=== PATIENT | male | born 1980 | race Caucasian/White ===

== ENCOUNTER 2019-10-12 22:16 | Emergency (ER) | payer BC, OTHER ==
[2019-10-13 00:38] LABS: Absolute Lymphocytes (CBC) 2.3 K/uL (0.7-4.9); Basophils % 0.5 % (0-1.3); Hematocrit 46.6 % (39.6-49.0); Lymphocytes % 18.1 % (15.3-44.8); MPV 10.7 fL (7.6-11.3); RBC Red Blood Cell Count 5.39 M/uL (4.33-5.43)
[2019-10-13 00:50] LABS: Albumin 3.7 g/dL (3.4-5.0); Bilirubin Total 0.3 mg/dL (0.2-1.0); Potassium 3.9 mmol/L (3.5-5.1); Protein, Total 7.3 g/dL (6.4-8.2)
--- NOTE | 2019-10-13 02:47 | ER ---
Nurse's Notes [facility] Name: Donaldo Londono Age: 39 yrs Sex: Male : 1980 Arrival Date: 10/12/2019 Time: 22:19 Bed 18 Private MD: Diagnosis: Fever, unspecified Presentation: 10/11 22:46 Chief complaint: Patient states: "I was at work today and at about noon I started jd3 feeling weak all over. I was running a fever of 101.3. I took Tylenol, but I have been feeling real lethargic and short of breath with chest pain and a headache.". Coronavirus screen: Surgical mask placed on patient. Patient moved to private room, placed in contact and droplet isolation with eye protection until further assessment. Patient denies a cough. Patient reports shortness of breath or difficulty breathing. Patient reports a measured and/or subjective temperature greater than 100.4F. Patient denies travel on a cruise ship or to a country the [facility] currently lists as an affected area. Patient denies contact with known and/or suspected case of COVID-19. Ebola Screen: Patient negative for fever greater than or equal to 101.5 degrees Fahrenheit, and additional compatible Ebola Virus Disease symptoms. Initial Sepsis Screen: Does the patient meet any 2 criteria? No. Patient's initial sepsis screen is negative. Does the patient have a suspected source of infection? No. Patient's initial sepsis screen is negative. Risk Assessment: Do you want to hurt yourself or someone else? Patient reports no desire to harm self or others. Onset of symptoms was October 12, 2019. 22:46 Method Of Arrival: Ambulatory jd3 22:46 Acuity: RAMANA 3 jd3 Historical: - Allergies: 22:51 No Known Allergies; jd3 - Home Meds: 22:51 BP med [Active]; DM med [Active]; thryoid med [Active]; high cholesteral med [Active]; jd3 - PMHx: 22:51 High Cholesterol; Hypertension; jd3 - PSHx: 22:51 Cholecystectomy; Knee surgery; right wrist; jd3 - Immunization history:: Adult Immunizations up to date. - Social history:: Smoking status: Patient reports the use of cigarette tobacco products, smokes one-half pack cigarettes per day. Screenin/19 00:18 Abuse screen: Denies threats or abuse. Denies injuries from another. Nutritional mg2 screening: No deficits noted. Tuberculosis screening: No symptoms or risk factors identified. Fall Risk IV access (20 points). Assessment: 00:17 General: Appears in no apparent distress. comfortable, Behavior is calm, cooperative. mg2 Pain: Complains of pain in chest Pain does not radiate. Pain currently is 2 out of 10 on a pain scale. Quality of pain is described as tightness. Neuro: Level of Consciousness is awake, alert, obeys commands, Oriented to person, place, time, situation. Cardiovascular: Capillary refill < 3 seconds Patient's skin is warm and dry. Respiratory: Airway is patent Respiratory effort is even, unlabored, Respiratory pattern is regular, symmetrical, Breath sounds are clear bilaterally. in mediastinum, right upper lobe, left upper lobe, right middle lobe, left lower lobe, right lower lobe, left posterior upper lobe, right posterior upper lobe, left posterior lower lobe, right posterior middle lobe and right posterior lower lobe. GI: No signs and/or symptoms were reported involving the gastrointestinal system. : No signs and/or symptoms were reported regarding the genitourinary system. EENT: No signs and/or symptoms were reported regarding the EENT system. Derm: Skin is intact, is healthy with good turgor, Skin is pink, warm \\T\\ dry. normal. Musculoskeletal: Circulation, motion, and sensation intact. Capillary refill < 3 seconds, Reports weakness in right arm, left arm, right leg and left leg. Vital Signs: 10/11 22:51 BP 112 / 69; Pulse 76; Resp 20 S; Temp 99.1(O); Pulse Ox 98% on R/A; Weight 118.84 kg jd3 (R); Height 6 ft. 0 in. (182.88 cm) (R); Pain 07/03; 10/12 01:30 BP 122 / 80; Pulse 75; Resp 18; Pulse Ox 100% on R/A; mg2 03:02 BP 124 / 78; Pulse 80; Resp 18; Temp 98.1; Pulse Ox 100% on R/A; mg2 10/11 22:51 Body Mass Index 35.53 (118.84 kg, 182.88 cm) jd3 ED Course: 10/11 22:19 Patient arrived in ED. ag3 22:48 Triage completed. jd3 22:52 Arm band placed on. jd3 23:25 Seng Deleon MD is Attending Physician. tw4 23:36 Lamont Brink, RN is Primary Nurse. mg2 23:58 CXR XRAY In Process Unspecified. EDMS 10/12 00:18 Patient has correct armband on for positive identification. mg2 00:18 No provider procedures requiring assistance completed. Inserted saline lock: 20 gauge mg2 in right antecubital area, using aseptic technique. Blood collected. 01:30 Door closed. mg2 03:02 IV discontinued, intact, bleeding controlled, No redness/swelling at site. Pressure mg2 dressing applied. Administered Medications: No medications were administered Outcome: 02:46 Discharge ordered by . tw4 03:02 Discharged to home ambulatory. mg2 03:02 Condition: stable 03:02 Discharge instructions given to patient, Instructed on discharge instructions, follow up and referral plans. Demonstrated understanding of instructions, follow-up care. 03:11 Patient left the ED. mg2 Addendum: 10/15/2019 06:46 Addendum: Other pt updated on COVID 19 results by . shay hart Signatures: Dispatcher [employer] EDSC Gopal Silver RN RN Erik Mantilla RN RN jd3 Seng Deleon MD MD tw4 Lamont Brink, STACY RN mg2 Ashley Rogers ag3 Corrections: (The following items were deleted from the chart) 10/11 22:49 22:46 Coronavirus screen: Proceed with normal triage. jd3 jd3
--- NOTE | 2019-10-13 02:47 | EDPHYS ---
Physician Documentation [facility] Name: Donaldo Londono Age: 39 yrs Sex: Male : 1980 Arrival Date: 10/12/2019 Time: 22:19 Bed 18 Private MD: ED Physician Seng Deleon HPI: 10/12 02:43 This 39 yrs old Male presents to ER via Ambulatory with complaints of Fever, tw4 CHILLS. 02:43 The patient reports fever, not measured (subjective). Onset: The symptoms/episode tw4 began/occurred today. Modifying factors: there are no obvious modifying factors, Denies contact with similarly ill indivduals. Denies recent travel. Associated signs and symptoms: Pertinent positives: chills. The patient has not experienced similar symptoms in the past. Historical: - Allergies: 10/11 22:51 No Known Allergies; jd3 - Home Meds: 22:51 BP med [Active]; DM med [Active]; thryoid med [Active]; high cholesteral med [Active]; jd3 - PMHx: 22:51 High Cholesterol; Hypertension; jd3 - PSHx: 22:51 Cholecystectomy; Knee surgery; right wrist; jd3 - Immunization history:: Adult Immunizations up to date. - Social history:: Smoking status: Patient reports the use of cigarette tobacco products, smokes one-half pack cigarettes per day. ROS: 10/12 02:43 Eyes: Negative for injury, pain, redness, and discharge, Cardiovascular: Negative for tw4 chest pain, palpitations, and edema, Respiratory: Negative for shortness of breath, cough, wheezing, and pleuritic chest pain, Abdomen/GI: Negative for abdominal pain, nausea, vomiting, diarrhea, and constipation, Back: Negative for injury and pain, MS/Extremity: Negative for injury and deformity, Skin: Negative for injury, rash, and discoloration, Neuro: Negative for headache, weakness, numbness, tingling, and seizure. Constitutional: Positive for fever, Negative for body aches, chills, fatigue, malaise, poor PO intake. Exam: 02:43 Constitutional: This is a well developed, well nourished patient who is awake, alert, tw4 and in no acute distress. Head/Face: Normocephalic, atraumatic. Chest/axilla: Normal chest wall appearance and motion. Nontender with no deformity. No lesions are appreciated. Cardiovascular: Regular rate and rhythm with a normal S1 and S2. No gallops, murmurs, or rubs. Normal PMI, no JVD. No pulse deficits. Respiratory: Lungs have equal breath sounds bilaterally, clear to auscultation and percussion. No rales, rhonchi or wheezes noted. No increased work of breathing, no retractions or nasal flaring. Abdomen/GI: Soft, non-tender, with normal bowel sounds. No distension or tympany. No guarding or rebound. No evidence of tenderness throughout. Back: No spinal tenderness. No costovertebral tenderness. Full range of motion. MS/ Extremity: Pulses equal, no cyanosis. Neurovascular intact. Full, normal range of motion. Neuro: Awake and alert, GCS 15, oriented to person, place, time, and situation. Cranial nerves II-XII grossly intact. Motor strength 5/5 in all extremities. Sensory grossly intact. Cerebellar exam normal. Normal gait. Vital Signs: 10/11 22:51 BP 112 / 69; Pulse 76; Resp 20 S; Temp 99.1(O); Pulse Ox 98% on R/A; Weight 118.84 kg jd3 (R); Height 6 ft. 0 in. (182.88 cm) (R); Pain 3/10; 10/12 01:30 BP 122 / 80; Pulse 75; Resp 18; Pulse Ox 100% on R/A; mg2 03:02 BP 124 / 78; Pulse 80; Resp 18; Temp 98.1; Pulse Ox 100% on R/A; mg2 10/11 22:51 Body Mass Index 35.53 (118.84 kg, 182.88 cm) jd3 MDM: 10/11 23:25 Patient medically screened. tw4 10/12 02:43 Differential diagnosis: viral Infection, bacterial infection, URI. Data reviewed: vital tw4 signs, nurses notes. Data reviewed: lab test result(s), CBC, electrolytes, Flu: negative. Data interpreted: Pulse oximetry: Interpretation: normal. Test interpretation: by ED physician or midlevel provider: plain radiologic studies. Counseling: I had a detailed discussion with the patient and/or guardian regarding: the historical points, exam findings, and any diagnostic results supporting the discharge/admit diagnosis. Special discussion: I discussed with the patient/guardian in detail that at this point there is no indication for admission to the hospital. It is understood, however, that if the symptoms persist or worsen the patient needs to return immediately for re-evaluation. 10/11 23:28 [facility] 10/11 23:28 Order name: Flu [facility] 10/11 23:28 Order name: Strep [facility] 10/11 23:29 Order name: CBC with Diff; Complete Time: 01:41 [facility] 10/12 01:41 Interpretation: Normal except: WBC 12.9; NEUT A 9.4. [facility] 10/11 23:29 Order name: CMP; Complete Time: 01:41 [facility] 10/12 01:41 Interpretation: Within normal limits. [facility] 10/12 02:51 Order name: Throat Culture [facility] 10/11 23:28 Order name: CXR XRAY [facility] 10/11 23:28 Order name: Document PUI#; Complete Time: 01:53 [facility] 10/11 23:28 Order name: Droplet/Contact Precautions; Complete Time: 00:19 [facility] 10/11 23:28 Order name: Labs collected and sent; Complete Time: 00:19 [facility] 10/11 23:28 Order name: O2 Per Protocol; Complete Time: 00:18 Administered Medications: No medications were administered Disposition: 10/13/19 02:46 Discharged to Home. Impression: Fever, unspecified. - Condition is Stable. - Discharge Instructions: Fever, Adult. - Medication Reconciliation Form, Thank You Letter, Antibiotic Education, Prescription Opioid Use, Work release form form. - Follow up: Private Physician; When: Upon discharge from the Emergency Department; Reason: Recheck today's complaints, Continuance of care, Re-evaluation by your physician. - Problem is new. - Symptoms have improved. Signatures: Dispatcher [employer] EDMS Erik Mantilla RN RN jd3 Seng Deleon MD MD tw4 Lamont Brink RN RN mg2 Corrections: (The following items were deleted from the chart) 03:11 02:46 10/13/2019 02:46 Discharged to Home. Impression: Fever, unspecified. Condition is mg2 Stable. Forms are Medication Reconciliation Form, Thank You Letter, Antibiotic Education, Prescription Opioid Use. Follow up: Private Physician; When: Upon discharge from the Emergency Department; Reason: Recheck today's complaints, Continuance of care, Re-evaluation by your physician. Problem is new. Symptoms have improved. tw4
[2019-10-13 03:24] VITALS: O2SAT 100
[2019-10-13 03:26] VITALS: BP 124/78; TEMP 98.1
--- NOTE | 2019-10-13 07:53 | RAD REPORT ---
EXAM DESCRIPTION: RAD - Chest Single View - 10/12/2019 11:57 pm CLINICAL HISTORY: CHEST PAIN COMPARISON: Portable March 2014 TECHNIQUE: AP portable chest image was obtained 10/12/2019 11:57 pm . FINDINGS: Lungs are clear. Heart and vasculature are normal. No measurable pleural effusion and no p neumothorax. No acute bony abnormality seen. No acute aortic findings suspected. IMPRESSION: No acute cardiopulmonary process. No significant interval change.
== END 2019-10-13 03:11 | disposition home or self-care (01) ==
LOC: ER 22:16
DX: R50.9 Fever, unspecified (principal); F17.210 Nicotine dependence, cigarettes, uncomplicated; I10 Essential (primary) hypertension; E78.00 Pure hypercholesterolemia, unspecified; Z20.828 Contact with and (suspected) exposure to other viral communicable diseases
CPT/HCPCS: 87070; 85025; 36415; 87081; 80053; 87804 ×2; 71045; 99283; U0001

== ENCOUNTER 2021-09-28 22:42 | Emergency (ER) | payer BC ==
--- OUTSIDE RECORDS SUMMARY | 2021-09-28 22:45 | XMS REPORT | Continuity of Care Document ---
:1980 Author Organization [facility] t Address [address] [place] [address] [address] [place] [address] Care Team Providers Name Role Phone Lorie CARO Attending Clinician Unavailable Doctor Unassigned, Name Attending Clinician Unavailable Hong VARGAS Attending Clinician JULIO CESAR Attending Clinician Unavailable NILS Attending Clinician Unavailable PRESTON Attending Clinician Unavailable Payers Payer Name Policy Type Policy Number Effective Date Expiration Date [facility] [id number] 2017 CHOICE 00:00:00 [facility] [id number] 2018 00:00:00 Problems Condition Condition Condition Status Onset Resolution Last Treating Co mments Source Name Details Category Date Date Treatment Clinician Date Pancreatit Pancreatit Disease Active U nivers is is 2-23 ity of 00:00: [place] [address] Medical Branch Obesity Obesity Disease Active 2018 Univers (BMI (BMI 2-23 ity of 30-39.9) 30-39.9) 00:00: [place] [address] Medical Branch Left wrist Left wrist Problem Active U T pain pain HL7.CCDAR2 Physic i ans Closed Closed Problem Active UT displaced displaced HL7.CCDAR2 Physici fracture fracture ans of middle of middle third of third of scaphoid 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, nonunion, subsequent subsequent encounter encounter History of History of Problem Resolve UT back pain back pain HL7.CCDAR2 d Physici ans History of History of Problem Resolve UT pancreatit pancreatit HL7.CCDAR2 d Physici is is ans Screening Screening Problem Active UT for for HL7.CCDAR2 Physic i endocrine, endocrine, an s nutritiona nutritiona l, l, metabolic metabolic and and immunity immunity disorder disorder Osteoporos Osteoporos Problem Active U T is is HL7.CCDAR2 Physic i ans GERD GERD Disease Active Univers (gastroeso (gastroeso it y of phageal phageal [place] reflux reflux Medical disease) disease) Branch Diarrhea Diarrhea Disease Active Unive rs ity [facility] [place] [facility] Allergies, Adverse Reactions, Alerts Allergy Allergy Status Severity Reaction(s) Onset Inactive Treating Comm ents Source Name Type Date Date Clinician NO KNOWN Drug Active Univers ALLERGIE Class ity of [facility] Family History Family Member Diagnosis Comments Start Date Stop Date Source Mother Family history of Heart [facility] trouble Mother Family history of [facility] hypertension Mother Family history of malignant [facility] neoplasm Mother Family history of [facility] cerebrovascular accident (CVA) Father Family history of Heart [facility] trouble Father Family history of [facility] hypertension Father Family history of malignant [facility] neoplasm Father Family history of [facility] cerebrovascular accident (CVA) Social History Social Habit Start Date Stop Date Quantity Comments Source History of tobacco Cigarette Smoker University of use [facility] Exposure to Not sure [facility] SARS-CoV-2 (event) [facility] Cigarettes smoked 2018-05-31 2018-05-31 [facility] ity of current (pack per 00:00:00 00:00:00 ) - Reported Branch Cigarette 2018-05-31 2018-05-31 University of pack-years 00:00:00 00:00:00 [facility] Tobacco use and 2018-05-31 2018-05-31 Never used Universit y of exposure 00:00:00 00:00:00 [facility] Alcohol intake 2018-05-31 2018-05-31 Current University of 00:00:00 00:00:00 non-drinker of [facility] alcohol Branch (finding) Tobacco Comment 2018-02-17 2018-02-17 e-cigarette Universi ty of 00:00:00 00:00:00 daily; [facility] cigarettes: 1/2 Branch pack, 1997 Sex Ass[birth year] Universit y of 00:00:00 00:00:00 [facility] Smoking Status Start Date Stop Date Source Heavy tobacco smoker 2018-05-31 00:00:00 [facility] ity of [facility] Medications Ordered Filled Start Stop Current Ordering Indication Dosage Frequency Signature Comments Components Source Medication Medication Date Date Medication? Clinician (SIG) Name Name morpHINE 0 2020- No 6mg 6 mg, Slow Un christopher injection 6 6-21 06- IV Push, ity of mg 16:15: 15:23 ONCE, 1 [place] 00 :00 dose, [facility] 10/14/20 at Branch 1115, STAT dexamethaso 2020- No 10mg 10 mg, IV Univers ne 10-14 Push, ity of (DECADRON 16:15: 15:24 [place]CE, 1 [place] PHOS[place] 00 :00 dose, [facility] Medi mitra injection 10/14/20 at Bran ch 10 mg 1115, STAT diazePAM 2020- No 2mg 2 mg, Slow Un christopher (VALIUM) 10-14 IV Push, ity of injection 2 14:45: 13:40 [place]CE[place] 1 [place] mg 00 :00 dose, [facility] 10/14/20 at Branch 0945, STAT FENTanyl PF 2020- No 100ug 100 mcg, Univers (SUBLIMAZE 10-14 Slow IV ity o f (PF)) 13:45: 12:45 Push, [place] injection 00 :00 ONCE, 1 Medical 100 mcg dose, [facility] 10/14/20 at 0845, Routine ketorolac 2020- No 30mg 30 mg, Unive rs (TORADOL) 10-14 Slow IV ity of injection 12:45: 12:43 Push, [place] 30 mg 00 :00 ONCE, 1 Medical dose, [facility] 10/14/20 at 0745, Routine
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 diazePAM 2020-0 Yes [id number] 5mg Take 1 Un christopher (VALIUM) 5 6-21 tablet by ity of mg tablet 00:00: mouth 3 00 (three) Medical times Branch daily. diazePAM 2020-0 Yes [id number] 5mg Take 1 Un christopher (VALIUM) 5 6-21 tablet by ity of mg tablet 00:00: mouth 3 [place] 00 (three) Medical times Branch daily. predniSONE 2020-0 2020- No [id number] 40mg Take 2 Univers 20 mg 6-21 06-27 tablets by ity of tablet 00:00: 04:59 mouth [place] 00 :00 every Medical morning Branch for 5 days. sucralfate 2019-0 Yes [id number] 1g Take 1 Un christopher 1 gram 2-05 tablet by ity of tablet 00:00: mouth [place] 00 before Medical meals and Branch at bedtime. esomeprazol 2019-0 Yes [id number] 40mg Take 1 U nivers e (NEXIUM) 2-05 capsule by ity of 40 mg 00:00: mouth [place] capsule 00 daily with Medica l breakfast. Branch ondansetron 2019-0 Yes [id number] 8mg Take 1 U nivers (ZOFRAN) 8 2-05 tablet by ity of mg tablet 00:00: mouth [place] 00 every 8 Medical (eight) Branch hours as needed for Nausea and Vomiting (N/V). sucralfate 2019-0 Yes [id number] 1g Take 1 Un christopher 1 gram 2-05 tablet by ity of tablet 00:00: mouth [place] 00 before Medical meals and Branch at bedtime. esomeprazol 2019-0 Yes [id number] 40mg Take 1 U nivers e (NEXIUM) 2-05 capsule by ity of 40 mg 00:00: mouth [place] capsule 00 daily with Medica l breakfast. Branch ondansetron 2019-0 Yes [id number] 8mg Take 1 U nivers (ZOFRAN) 8 2-05 tablet by ity of mg tablet 00:00: mouth [place] 00 every 8 Medical (eight) Branch hours as needed for Nausea and Vomiting (N/V). sucralfate 2019-0 Yes [id number] 1g Take 1 Un christopher 1 gram 2-05 tablet by ity of tablet 00:00: mouth [place] 00 before Medical meals and Branch at bedtime. esomeprazol 2019-0 Yes [id number] 40mg Take 1 U nivers e (NEXIUM) 2-05 capsule by ity of 40 mg 00:00: mouth [place] capsule 00 daily with Medica l breakfast. Branch ondansetron 2019-0 Yes [id number] 8mg Take 1 U nivers (ZOFRAN) 8 2-05 tablet by ity of mg tablet 00:00: mouth [place] 00 every 8 Medical (eight) Branch hours as needed for Nausea and Vomiting (N/V). sucralfate 2019-0 Yes [id number] 1g Take 1 Un christopher 1 gram 2-05 tablet by ity of tablet 00:00: mouth [place] 00 before Medical meals and Branch at bedtime. esomeprazol 2018- Yes [id number] 40mg Take 1 U nivers e (NEXIUM) 2-05 capsule by ity of 40 mg 00:00: mouth [place] capsule 00 daily with Medica l breakfast. Branch ondansetron Yes [id number] 8mg Take 1 U nivers (ZOFRAN) 8 2-05 tablet by ity of mg tablet 00:00: mouth [place] 00 every 8 Medical (eight) Branch hours as needed for Nausea and Vomiting (N/V). methocarbam 2017-04 Yes [id number] 500mg Take 1 Univers ol 0-25 tablet by ity of (ROBAXIN) 00:00: mouth 2 [place] 500 mg 00 (two) Medical tablet times Branch daily as needed (back pain/spasm ). methocarbam 2017-04 Yes [id number] 500mg Take 1 Univers ol 0-25 tablet by ity of (ROBAXIN) 00:00: mouth 2 [place] 500 mg 00 (two) Medical tablet times Branch daily as needed (back pain/spasm ). methocarbam 2017-04 Yes [id number] 500mg Take 1 Univers ol 0-25 tablet by ity of (ROBAXIN) 00:00: mouth 2 [place] 500 mg 00 (two) Medical tablet times Branch daily as needed (back pain/spasm ). methocarbam 2017-04 Yes [id number] 500mg Take 1 Univers ol 0-25 tablet by ity of (ROBAXIN) 00:00: mouth 2 [place] 500 mg 00 (two) Medical tablet times Branch daily as needed (back pain/spasm ). Ondansetron Ondansetron Yes MYRON 1 Q12H TAKE 1 UT HCl - 8 MG HCl - 8 MG 4-20 MANSOUR TABLET Physici Oral Tablet Oral Tablet 00:00: M.D. Every ans 00 twelve hours Colace 100 Colace 100 2017- Yes MYRON Q0.3333D TAKE 1 UT MG Oral MG Oral 4-20 MANSOUR CAPSULE 3 P hysici Capsule Capsule 00:00: M.D. TIMES ans 00 DAILY. Vital Signs Vital Name Observation Time Observation Value Comments Source Systolic blood 2020-10-14 16:00:00 123 mm[Hg] Univer [facility] Diastolic blood 2020-10-14 16:00:00 73 mm[Hg] Unive [facility] Heart rate 2020-10-14 16:00:00 50 /min [facility] Respiratory rate 2020-10-14 16:00:00 20 /min [facility] Oxygen saturation in 2020-10-14 16:00:00 97 /min [facility] Arterial blood by [facility] Pulse oximetry [place] Body temperature 2020-10-14 12:35:00 36.78 Christina [facility] Body weight 2020-10-14 12:35:00 102.513 kg [facility] BMI 2020-10-14 12:35:00 30.65 kg/m2 [facility] Procedures Procedure Date / Time Performing Clinician Source Performed PHYSICIAN ORDERS 2020-11-21 05:01:00 Doctor Unassigned, No Unive [facility] AUTHORIZATION FOR 2020-10-17 05:01:00 Doctor Unassigned, No Univ [facility] RELEASE [facility] XR LUMBAR SPINE 2 VW 2020-10-14 14:03:11 Shama Alfaro [facility] NOTICE OF PRIVACY 2020-10-14 12:25:01 Doctor Unassigned, No Univ [facility] CONSENT/REFUSAL FOR 2020-10-14 12:24:51 [facility], [facility] [Q] C TELOPEPTIDE (CTX) 2018-01-28 00:00:00 UT P hysicians [Q] PROCOLLAGEN TYPE I 2018-01-28 00:00:00 [facility] Ph ysicians INTACT N TERMINAL PROPEPTIDE [Q] VITAMIN D, 2018-01-28 00:00:00 UT Physician s 25-HYDROXY, LC/MS/MS [QH] CALCIUM 2018-01-28 00:00:00 UT Physician s [QLH] ALKALINE 2018-01-28 00:00:00 UT Physician s PHOSPHATASE, BONE SPECIFIC [QLH] CMP W/EGFR 2018-01-28 00:00:00 UT Physicia ns [QLH] MAGNESIUM 2018-01-28 00:00:00 UT Physician s [QLH] PHOSPHATE ( 2018-01-28 00:00:00 UT Physi cians PHOSPHORUS) [QLH] PTH, INTACT 2018-01-28 00:00:00 UT Physici ans (WITHOUT CALCIUM) [QLH] TSH, 3RD 2018-01-28 00:00:00 UT Physician s GENERATION W/REFLEX TO FT4 [O] Dexa Scan (Dual 2018-01-28 00:00:00 UT Physi cians Energy X-Ray) [id number] [U] XRAY WRIST MIN 3 VWS 2018-01-17 00:00:00 [facility] LEFT [id number] [U] XRAY WRIST MIN 3 VWS 2017-12-03 00:00:00 [facility] LEFT [id number] CT Wrist without 2017-11-16 00:00:00 UT Physicia ns contrast [id number] [U] XRAY WRIST MIN 3 VWS 2017-10-29 00:00:00 [facility] LEFT [id number] CT Wrist without 2017-10-08 00:00:00 UT Physicia ns contrast [id number] [U] XRAY WRIST MIN 3 VWS 2017-10-04 00:00:00 [facility] LEFT [id number] [U] XRAY WRIST MIN 3 VWS 2017-09-27 00:00:00 [facility] LEFT [id number] [U] XRAY WRIST MIN 3 VWS 2017-09-01 00:00:00 [facility] LEFT [id number] [U] XRAY WRIST MIN 3 VWS 2017-08-30 00:00:00 [facility] LEFT [id number] [U] XRAY WRIST MIN 3 VWS 2017-07-28 00:00:00 [facility] LEFT [id number] MR Wrist w/wo contrast 2017-07-28 00:00:[address] [id number] Wrist without 2017-07-28 00:00:00 UT Physicia ns contrast [id number] History of Knee surgery [facility] Physi [facility]ians History of Colonoscopy [facility] Physic ians History of Gallbladder [facility] Physic ians surgery Encounters Start End Encounter Admission Attending Care Care Encounter Source Date/Time Date/Time Type Type Clinicians Facility Department ID 2021-02-24 Emergency [facility] [id number] Univers [facility]06 2020-12-06 Outpatient R [facility] [id number] Univers 13:40:00 13:40:00 [id number] [facility] 2020-12-06 2020-12-06 Outpatient R CARO, [facility] [id number] Univers 13:40:00 13:40:00 RAHEL [facility] 2020-11-21 2020-11-21 Orders Doctor ELIEL [id number] Univers 00:00:00 00:00:00 Only Unassigned, HADLEY [id number] ity of [facility] [id number] [place] as [phone] [address] 2020-10-17 2020-10-17 Orders Doctor ELIEL [id number] Univers 00:00:00 00:00:00 Only Unassigned, HADLEY [id number] ity of [facility] [id number] [place] as [phone] [address] 2020-10-14 2020-10-14 Emergency [facility] [id number] Univers 07:33:00 11:36:00 Shama Anthony [id number] i ty [facility] [id number] [place] [facility] [phone] [address] 2020-10-14 2020-10-14 Orders Doctor ELIEL [id number] Univers 00:00:00 00:00:00 Only Unassigned, HAD[place] [id number] ity of [facility] [id number] [place] as [id number] [address] 2018-01-28 2018-01-28 Loree HARRELL [facility] Orthopedics [id number] [place] 11:30:00 11:30:00 t; Mireya CHATTERJEE P.A. ans CHRISTINA, PJack 2018-01-28 2018-01-28 Appointtiki DEXA, SCAN [facility] General [id number] ID 10:00:00 10:00:00 t; DEXA, Medicine Phys ici SCAN ans 2018-01-20 2018-01-20 Appointtiki JOHNSTON [facility] Orthopedics 44 [id number] [place] 07:30:00 07:30:00 t; bettie [facility] Domenica Villegas i, M.D. 2017-12-09 2017-12-09 [facility] Orthopedics [id number] [place] 07:30:00 07:30:00 t; bettie [facility] Domenica Villegas i, M.D. 2017-11-16 2017-11-16 [facility] Orthopedics 43 [id number] ID 07:30:00 07:30:00 t; bettie [facility] Anson Domenica Lopez M.D. 2017-10-29 2017-10-29 [facility] Orthopedics 43 [id number] [place] 11:30:00 11:30:00 t; bettie [facility] Domenica Villegas i, M.D. 2017-10-08 2017-10-08 [facility] Orthopedics 42 [id number] [place] 14:30:00 14:30:00 t; bettie [facility] Domenica Villegas i, M.D. 2017-10-01 2017-10-01 [facility] Orthopedics 42 [id number] ID 11:30:00 11:30:00 t; bettie [facility] Domenica Villegas i, M.D. 2017-09-03 2017-09-03 [facility] Orthopedics 41 [id number] ID 11:30:00 11:30:00 t; bettie [facility] [place] Domenica Lopez M.D. 2017-09-01 2017-09-01 [facility] Orthopedics 41 [id number] ID 13:45:00 13:45:00 t; bettie [facility] Domenica Villegas i, M.D. 2017-08-16 2017-08-16 [facility] Orthopedics 41 [id number] ID 09:00:00 09:00:00 t; bettie [facility] Domenica Villegas i, M.D. 2017-08-13 2017-08-13 [facility] [id number] ID 10:00:00 10:00:00 t; An[place] SANCHES i, M.D. ans ASHTON, M.D. 2017-07-28 2017-07-28 Loree JOHNSTON [facility] Orthopedics [id number] UT 11:00:00 11:00:00 t; bettie [facility] Domenica Villegas i, M.D. Results Test Test Test Results Result Source Description Time Comments Comments XR LUMBAR SPINE 2020-09- No acute osseous findings University of 2 VW 21 are seen. Preliminary [place] Medical 16:29:37 Report Dictated by Branch Resident: Sarina Roberts MD., have reviewed this study and agree with theabove report.XR LUMBAR SPINE 2 VW HISTORY: 40 years-old Male; lower back pain after pulling pipes. TECHNIQUE: Anterior and lateral views of the lumbar spine were obtained. COMPARISON: CT abdomen and pelvis to 09/12/2018. FINDINGS: Five non-rib bearing lumbar vertebral bodies are noted. Normal lumbar lordosis is maintained. ?The vertebral bodies are normal in height. Trace gradient 1 retrolisthesisof L5 over S1, unchanged. Probable posterior L4 limbus vertebrae andadjacent annular mineralization. Schmorl's nodes are seen.The intervertebral disc space is preserved.No acute fracture or traumatic malalignment of the lumbar spine isidentified. [facility], Radiant Results Inft User - 10/14/2020 11:30 AM CDT XR LUMBAR SPINE 2 VWHISTORY: 40 years-old Male; lower back pain after pulling pipes.TECHNIQUE: Anterior and lateral views of the lumbar spine were obtained.COMPARISON: CT abdomen and pelvis to 09/12/2018.FINDINGS: Five non-rib bearing lumbar vertebral bodies are noted. Normal lumbar lordosis is maintained. The vertebral bodies are normal in height. Trace gradient 1 retrolisthesisof L5 over S1, unchanged. Probable posterior L4 limbus vertebrae andadjacent annular mineralization. Schmorl's nodes are seen.The intervertebral disc space is preserved.No acute fracture or traumatic malalignment of the lumbar spine isidentified.IMPRESSIONNo acute osseous findings are seen.Preliminary Report Dictated by Resident: AteSarina Walter MD., have reviewed this study and agree with theabove report. [U] XRAY WRIST 2017-11- Images acquired, not [facility] MIN 3 VWS LEFT 16 reported on this accession [id number] 07:39:[address] Wrist 2017-11- CT LEFT WRIST WITHOUT [facility] without 15 CONTRAST WITH SAGITTAL AND contrast [id number] 08:03:00 CORONAL REFORMATTED IMAGES AND3-D RECONSTRUCTIONSHISTORY: S62.022K Displaced fracture of middle third of navicular [scaphoid]bone of left wrist, subsequent encounter for fracture with nonunion evaluatehealing; TECHNIQUE: IV CONTRAST: No. GI CONTRAST: No. CT imaging performed at [facility] utilizes radiation dose optimization techniques which include one ormore of the following:-Automated exposure control-Adjustment of the mA and/or kV according to patient size-Use of iterative reconstruction techniqueCT Radiation Dose DLP 226.58 mGy-cmCOMPARISON: CT left wrist examinations dated 10/26/2017 and 08/05/2017 and MRIleft wrist dated 08/05/2017FINDINGS:Screw fixation of nondisplaced fracture through the waist of the scaphoid isagain noted. There is no lucency about the screw to suggest hardware loosening.Mildly increased width of the fracture lucency without solid osseous bridgingcompatible with scaphoid nonunion (compare coronal image 55 on this study tocoronal image 21 on the prior study).Suspect developing nondisplaced fragmentation involving the volar aspect of theproximal pole fragment, concerning for osteonecrosis (coronal image 54).No other change is seen. Stable mild widening of the scapholunate interval.Changes of bone graft harvest in the distal radial metaphysis again noted.Degenerative subcortical cyst in the distal ulna again noted. Soft tissues arenormal without fluid collection, mass, or edematous/inflammatory fat stranding.IMPRESSION:1. Increased width and prominence of scaphoid fracture lucency without osseousbridging compatible with scaphoid nonunion.2. Suspect developing nondisplaced fragmentation involving the volar aspect ofthe proximal pole fragment, concerning for osteonecrosis.3. Unchanged mild widening of the scapholunate interval.SL: [id number]--Scav by: Teddy Velazquez MDDictated Date/time: 12/08/17 10:15Electronically Signed by: Teddy Velazquez MD 12/08/1809:30FINAL REPORT [U] XRAY WRIST 2017-10- Images acquired, not [facility] MIN 3 VWS LEFT 24 reported on this accession [id number] 07:38:00 number. [U] XRAY WRIST 2017-10- Images acquired, not [facility] MIN 3 VWS LEFT 06 reported on this accession [id number] 11:58:[address] Wrist 2017-10- CT LEFT WRIST WITHOUT [facility] without 03 CONTRAST WITH SAGITTAL AND contrast [id number] 15:35:00 CORONAL REFORMATTED IMAGES AND3-D RECONSTRUCTIONSHISTORY: Scaphoid fracture; - closed fx eval healing surgery July 2017; CTDLP 235.20COMPARISON: CT and MRI left wrist examinations dated 08/05/2017FINDINGS:Since the prior exam, internal fixation screw has been placed across thenondisplaced fracture in the waist of the scaphoid. Screw positioning appearsadequate. No evidence of hardware loosening. There is a new bony defect in thevolar cortex of the distal radius, likely site of bone graft harvest.Since the prior CT, the scaphoid fracture lucency has decreased in width, butthere is been no solid osseous healing of the scaphoid fracture fragments(axial series 2 images 80-90%. No significant sclerosis of the proximal polefragment to suggest CT evidence of osteonecrosis.No new fracture is seen. No dislocation or subluxation. Mild volar tilting ofthe lunate is unchanged. Degenerative subcortical cyst in the distal ulna isagain noted.IMPRESSION:1. Internal fixation of the scaphoid waist fracture since prior exams. Screwpositioning appears satisfactory. No evidence of hardware loosening.2. The scaphoid fracture lucency has decreased in width but there is no solidosseous healing of the scaphoid fracture fragments at this time.3. New bony defect in the volar cortex of the distal radius compatible withsite of bone graft harvest.SL: [id number]--Hqpc by: Teddy Velazquez MDDictated Date/time: 10/26/17 16:13Electronically Signed by: Teddy Velazquez MD 10/27/1815:24FINAL REPORT [U] XRAY WRIST 2017-09- Images acquired, not [facility] MIN 3 VWS LEFT 15 reported on this accession [id number] 14:38:00 number. [U] XRAY WRIST 2017-08- Images acquired, not [facility] MIN 3 VWS LEFT 09 reported on this accession [id number] 14:07:00 number. MR Wrist wo 2017-07- Clinical Indication: - [facility] contrast [id number] S62.022K Displaced 18:23:00 fracture of middle third ofnavicular [scaphoid] bone of left wrist, subsequent encounter for fracture withnonunion , left wrist pain, scaphoid fractureComparison: NoneTECHNIQUE: Multiplanar T1, T2, PD and gradient echo sequences of the leftwrist.IV CONTRAST TYPE and VOLUME: NoneFINDINGS:Transscaphoid waist fracture is seen with extensive marrow edema throughout thedistal pole fracture fragment. There is approximately 2 to 3 mm of distractionof the fracture fragments. No findings to suggest avascular necrosis of theproximal pole at this time.Benign subchondral cystic change of the distal ulna. Marrow signalcharacteristics are otherwise unremarkable. No additional bony contusions orfractures. No aggressive osseous lesions.Diffuse thickening of the scapholunate ligament, without disruption, consistentwith a sprain. There is irregularity with abnormal intrasubstance signal of thevolar band of the lunotriquetral ligament consistent with a mild sprain orlow-grade partial tear. Partial tear of the foveal attachment of the triangularfibrocartilage which is otherwise intact.There is diffuse thickening and hyperintense signal abnormality of the volarradioscapholunate ligament consistent with a sprain.Flexor and extensor tendons of the wrist are intact. No tenosynovitis or tendondisruption.The carpal tunnel is unremarkable. Guyon's canal is within normal limits.Small to medium sized radiocarpal joint effusion. No osteochondral lesions orloose intra-articular bodies.IMPRESSION:1. Transient scaphoid waist fracture with up to 3 mm of distraction andsignificant marrow edema throughout the distal pole fracture fragment.2. Diffuse scapholunate ligament thickening consistent with a sprain. No focaldisruption.3. Mild sprain or low-grade partial tear of the volar band of thelunotriquetral ligament.4. Partial tear of the foveal attachment of the TFC.5. Sprain of the volar radioscapholunate ligament.6. Radiocarpal joint effusion. No osteochondral lesions or looseintra-articular bodies.SL: [id number] by: Woody Quevedo MDDictated Date/time: 08/06/17 09:21Electronically Signed by: Woody Quevedo MD 08/06/1808:43FINAL REPORT CT Wrist 2017-07- EXAM: CT LEFT WRIST WITHOUT [facility] without 12 IV CONTRASTHISTORY: - contrast [id number] 15:30:00 closed displaced fx middle 3rd scaphoid leftThe patient indicates a history of left scaphoid fracture March 2017.COMPARISON: None.TECHNIQUE: Helical scan of the left wrist, axial plane. Images reviewed in 3planes.DLP: 244 mGy.cmFINDINGS:An oblique fracture is demonstrated through the middle 3rd of the scaphoid. Theproximal and distal bone fragments are by approximately 3 mm. A 2 mmfragment is seen along the anterior margin of the fracture. There is mildsclerotic change of the proximal bone fragment.No other fractures are demonstrated. There is neutral ulnar variance. Asubcortical cyst is noted incidentally within the distal aspect of the ulna.Alignment is normal.IMPRESSION:1. Mildly displaced fracture across the central 3rd of the scaphoid with inadjacent 2 mm bone fragment and mild sclerotic changes of the proximal bonefragment which may be a consequence of early osteonecrosis.SL: [id number] by: Luis Clifton MDDictated Date/time: 08/05/17 16:23Electronically Signed by: Luis Clifton MD 08/06/1815:32FINAL REPORT [U] XRAY WRIST 2017-07- Images acquired, not [facility] MIN 3 VWS LEFT 04 reported on this accession [id number] 11:54:00 number.
[2021-09-28 23:35] LABS: Absolute Lymphocytes (CBC) 3.6 K/uL (0.7-4.9); Hematocrit 45.6 % (39.6-49.0); Lymphocytes % 30.9 % (15.3-44.8); MPV 8.7 fL (7.6-11.3); RBC Red Blood Cell Count 5.38 M/uL (4.33-5.43)
[2021-09-28 23:49] LABS: Potassium 3.6 mmol/L (3.5-5.1); Troponin High Sensitivity 5.2 pg/mL (<58.9)
--- NOTE | 2021-09-29 00:07 | EDPHYS ---
Physician Documentation [facility] Name: Donaldo Londono Age: 41 yrs Sex: Male : 1980 Arrival Date: 09/28/2021 Time: 23:03 Bed 8 Private MD: ED Physician Anthony Fleming HPI: 09/28 23:05 This 41 yrs old Male presents to ER via Unassigned with complaints of chest pain. ms3 23:05 The patient or guardian reports chest pain that is located primarily in the substernal ms3 area. Onset: 17 hour(s) ago. The pain does not radiate. Associated signs and symptoms: Pertinent negatives: abdominal pain, diaphoresis, dizziness, nausea, vomiting. The chest pain is described as a pressure. Duration: The patient or guardian reports multiple episodes, that are intermittent. Modifying factors: The symptoms are alleviated by nothing. the symptoms are aggravated by nothing. Severity of pain: At its worst the pain was moderate in the emergency department the pain has improved mildly. EMS care prior to arrival includes: aspirin, nitroglycerin. Historical: - Allergies: 23:05 No Known Allergies; ke1 - PMHx: 23:05 High Cholesterol; Hypertension; ke1 - Immunization history:: Client reports receiving the 2nd dose of the Covid vaccine. - Social history:: Smoking status: Patient reports the use of cigarette tobacco products, smokes one-half pack cigarettes per day. ROS: 23:05 Constitutional: Negative for fever, and chills. Eyes: Negative for injury, pain, ms3 redness, and discharge, Neck: Negative for injury, pain, and swelling, Respiratory: Negative for shortness of breath, cough, wheezing, and pleuritic chest pain, Abdomen/GI: Negative for abdominal pain, nausea, vomiting, diarrhea, and constipation, Skin: Negative for injury, rash, and discoloration. 23:05 Cardiovascular: Positive for chest pain. 23:05 All other systems are negative. Exam: 22:51 ECG was reviewed by the Attending Physician. ms3 23:05 Constitutional: This is a well developed, well nourished patient who is awake, alert, ms3 and in no acute distress. Head/Face: Normocephalic, atraumatic. Neck: Trachea midline, no cervical lymphadenopathy. Supple, full range of motion without nuchal rigidity, or vertebral point tenderness. No Meningismus. Chest/axilla: Normal chest wall appearance and motion. Nontender with no deformity. Cardiovascular: Regular rate and rhythm with a normal S1 and S2. No gallops, murmurs, or rubs. Normal PMI, no JVD. No pulse deficits. Respiratory: Lungs have equal breath sounds bilaterally, clear to auscultation and percussion. No rales, rhonchi or wheezes noted. No increased work of breathing, no retractions or nasal flaring. Skin: Warm, dry with normal turgor. Normal color with no rashes, no lesions, and no evidence of cellulitis. Psych: Awake, alert, with orientation to person, place and time. Behavior, mood, and affect are within normal limits. Vital Signs: 23:03 BP 146 / 81; Pulse 71; Resp 18; Temp 98.7; Pulse Ox 95% on R/A; Weight 113.4 kg; Height ke1 6 ft. 1 in. (185.42 cm); Pain 0/10; 23:50 BP 124 / 81; Pulse 78; Resp 16; Pulse Ox 99% on R/A; kd3 23:03 Body Mass Index 32.98 (113.40 kg, 185.42 cm) ke1 MDM: 23:03 Patient medically screened. ms3 23:05 Differential diagnosis: abnormal EKG, acute myocardial infarction, coronary artery ms3 disease. 06 00:06 HEART Score: History: Slightly Suspicious (0), ECG: Normal (0), Age: < or = 45 years ms3 (0), Risk Factors: 1 or 2 risk factors (1), Troponin: < or = 1 x Normal Limit (0), Total Score = 1. Data reviewed: vital signs, nurses notes, lab test result(s), EKG, radiologic studies, and as a result, I will discharge patient. Data interpreted: traffic monitor specialist: rate is 76 beats/min, rhythm is normal sinus rhythm, regular, with no ectopy, Interpretation: normal rate, normal rhythm. Counseling: I had a detailed discussion with the patient and/or guardian regarding: the historical points, exam findings, and any diagnostic results supporting the discharge/admit diagnosis, lab results, radiology results, the need for outpatient follow up, to return to the emergency department if symptoms worsen or persist or if there are any questions or concerns that arise at home. ED course: Discussed EKG,CXR, labs , PE findings with patient. Patient to follow up with PMD in 1-2 days. Patient understands/ agrees with plan. All questions answered. Return precautions given to include worsening symptoms, or any other concerns. Patient is improved, in NAD, non-toxic appearing, ambulatory in ED, speaking full sentences.. 09/28 23:04 Order name: Basic Metabolic Panel; Complete Time: 23:52 ms3 09/28 23:04 Order name: CBC with Diff; Complete Time: 23:52 ms3 09/28 23:04 Order name: Troponin HS; Complete Time: 23:52 ms3 09/28 23:04 Order name: XRAY Chest (1 view) ms3 09/28 23:04 Order name: EKG; Complete Time: 23:05 ms3 09/28 23:04 Order name: Cardiac monitoring; Complete Time: 23:27 ms3 09/28 23:04 Order name: EKG - Nurse/Tech; Complete Time: 23:29 ms3 09/28 23:04 Order name: IV Saline Lock; Complete Time: 23:28 ms3 09/28 23:04 Order name: Labs collected and sent; Complete Time: 23:28 ms3 09/28 23:04 Order name: O2 Per Protocol; Complete Time: 23:28 ms3 09/28 23:04 Order name: O2 Sat Monitoring; Complete Time: 23:28 ms3 EC/05 22:51 Rate is 71 beats/min. Rhythm is regular. QRS [place] is Normal. NM interval is normal. ms3 Clinical impression: Normal ECG. Interpreted by me. Administered Medications: No medications were administered Disposition Summary: 09/29/21 00:06 Discharge Ordered Location: Home ms3 Condition: Stable ms3 Diagnosis - Chest pain, unspecified ms3 Followup: ms3 - With: Private Physician - When: 1 - 2 days - Reason: Recheck today's complaints Discharge Instructions: - Discharge Summary Sheet ms3 - Nonspecific Chest Pain, Adult ms3 Forms: - Medication Reconciliation Form ms3 - Thank You Letter ms3 - Antibiotic Education ms3 - Prescription Opioid Use ms3 Signatures: Dispatcher [employer] EDMS Anthony Fleming DO DO ms3 iHen Sewell RN RN ke1
--- NOTE | 2021-09-29 00:07 | ER ---
Nurse's Notes [facility] Name: Donaldo Londono Age: 41 yrs Sex: Male : 1980 Arrival Date: 09/28/2021 Time: 23:03 Bed 8 Private MD: Diagnosis: Chest pain, unspecified Presentation: 09/28 23:03 Chief complaint: Patient states: CP started at 2045, tingling on both upper ke1 extremities, on EMS arrival 150/108, NSR on ekg. Coronavirus screen: Vaccine status: Patient reports receiving the 2nd dose of the covid vaccine. Ebola Screen: No symptoms or risks identified at this time. Initial Sepsis Screen: Does the patient meet any 2 criteria? No. Patient's initial sepsis screen is negative. Does the patient have a suspected source of infection? No. Patient's initial sepsis screen is negative. Risk Assessment: Do you want to hurt yourself or someone else? Patient reports no desire to harm self or others. Onset of symptoms was September 28, 2021 at 20:46. 23:03 Method Of Arrival: EMS: [facility] 23:03 Acuity: RAMANA 3 ke1 23:13 Care prior to arrival: Medication(s) given: Nitroglycerin, paste. ke1 Triage Assessment: 23:06 General: Appears in no apparent distress. Behavior is appropriate for age. Pain: Denies ke1 pain. Cardiovascular: Rhythm is sinus rhythm. Cardiovascular: Chest pain is denied heat sensation. Respiratory: Airway is patent Trachea midline Respiratory effort is even, unlabored, Respiratory pattern is regular, symmetrical, Breath sounds are clear. GI: Abdomen is round. Historical: - Allergies: 23:05 No Known Allergies; ke1 - PMHx: 23:05 High Cholesterol; Hypertension; ke1 - Immunization history:: Client reports receiving the 2nd dose of the Covid vaccine. - Social history:: Smoking status: Patient reports the use of cigarette tobacco products, smokes one-half pack cigarettes per day. Screenin:07 Abuse screen: Denies threats or abuse. Nutritional screening: No deficits noted. ke1 Tuberculosis screening: No symptoms or risk factors identified. Fall Risk No fall in past 12 months (0 pts). No secondary diagnosis (0 pts). IV access (20 points). Ambulatory Aid- None/Bed Rest/Nurse Assist (0 pts). Gait- Normal/Bed Rest/Wheelchair (0 pts) Mental Status- Oriented to own ability (0 pts). Total Merchant Fall Scale indicates No Risk (0-24 pts). Assessment: 23:51 Reassessment: Patient and/or family updated on plan of care and expected duration. Pain kd3 level reassessed. Patient is alert, oriented x 3, equal unlabored respirations, skin warm/dry/pink. Vital Signs: 23:03 BP 146 / 81; Pulse 71; Resp 18; Temp 98.7; Pulse Ox 95% on R/A; Weight 113.4 kg; Height ke1 6 ft. 1 in. (185.42 cm); Pain 0/10; 23:50 BP 124 / 81; Pulse 78; Resp 16; Pulse Ox 99% on R/A; kd3 23:03 Body Mass Index 32.98 (113.40 kg, 185.42 cm) ke1 ED Course: 23:03 Patient arrived in ED. ke1 23:03 Hien Sewell, RN is Primary Nurse. ke1 23:03 Anthony Fleming DO is Attending Physician. ms3 23:05 Triage completed. ke1 23:09 Arm band placed on left wrist. ke1 23:09 Bed in low position. Call light in reach. ke1 23:23 XRAY Chest (1 view) In Process Unspecified. EDMS 23:27 Maintain EMS IV. Site clean \T\ dry. Gauge \T\ site: 18 G R AC. ke 1 06 00:30 No provider procedures requiring assistance completed. IV discontinued. ke1 Administered Medications: No medications were administered Medication: 09/28 23:49 VIS not applicable for this client. kd3 Outcome: 09/29 00:06 Discharge ordered by . msCinthia 00:30 Discharged to home ambulatory. ke1 00:30 Condition: good 00:30 Discharge instructions given to patient. 00:35 Patient left the ED. ke1 Signatures: Dispatcher [employer] EDMS Anthony Fleming DO DO ms3 Maribell Giron, RN RN kd3 Hien Sewell RN RN ke1
[2021-09-29 00:51] VITALS: TEMP 98.7
[2021-09-29 00:52] VITALS: BP 124/81; O2SAT 99
--- NOTE | 2021-09-29 13:20 | EKG ---
Test Date: 2021-09-28 Test Time: 22:51:19 Food Service Utility Worker: KIRSTEN MEASUREMENT RESULTS: Intervals: Rate: 71 IA: 146 QRSD: 90 QT: 396 QTc: 430 [place]: P: 58 IA: 146 QRS: -23 T: 50 INTERPRETIVE STATEMENTS: Normal sinus rhythm Normal ECG Compared to ECG 03/27/2014 08:08:51 Sinus arrhythmia no longer present Electronically Signed On 09-29-21 13:18:51 CDT by Cristopher Gunn
--- NOTE | 2021-09-30 12:51 | RAD REPORT ---
EXAM DESCRIPTION: Chest Single View CLINICAL HISTORY: 41-year-old male with chest pain. TECHNIQUE: Single view, AP portable chest was obtained. COMPARISON: None. FINDINGS: Unremarkable cardiac and mediastinal silhouette. Heart size is normal. Low lung volumes grossly clear without focal opacity, pneumothorax or pleural effusions. The visual ized bones are within normal limits. IMPRESSION: No acute cardiopulmonary abnormalities. Electronically signed by: Rachael Steel MD 09/28/2021 11:47 PM CDT Due to temporary technical issues with the PACS/Fluency reporting system, reports are being signed by the in house radiologists without review as a courtesy to insure prompt reporting. The interpreting radiologist is fully responsible for the content of the report.
== END 2021-09-29 00:35 | disposition home or self-care (01) ==
LOC: ER 22:42
DX: R07.9 Chest pain, unspecified (principal); I10 Essential (primary) hypertension; F17.210 Nicotine dependence, cigarettes, uncomplicated
CPT/HCPCS: 36415; 71045; 80048; 84484; 85025; 93005; 99284